=== PATIENT | male | born 1950 | race African-American/Black ===

== ENCOUNTER 2023-06-20 13:22 | Outpatient (CLI) | payer MEDICARE, MEDICAID ==
[~2023-06-20 13:22] MED LIST: Magnevist 469MG/ML 20 ML VIAL ONE
== END 2023-06-20 13:23 | disposition home or self-care (01) ==
LOC: CSHMRI 13:22
PROVIDERS: ATTEND Urology
DX: C61 Malignant neoplasm of prostate (principal); R33.9 Retention of urine, unspecified; R59.0 Localized enlarged lymph nodes
CPT/HCPCS: 72197; A9579